=== PATIENT | male | born 1930 | race Caucasian/White ===

== ENCOUNTER 2016-10-26 19:17 | Emergency (ER) | payer OTHER ==
[~2016-10-26] VITALS: Ht 170.2 cm; Wt 70.0 kg
[2016-10-26 19:26] VITALS: Ht 170.2 cm; Wt 70.0 kg
--- NOTE | 2016-10-26 19:45 | ERA ---
ER Documentation Chief Complaint Date/Time DATE: 10/26/16 TIME: 19:39 Chief Complaint slip and fall 6 hrs ago, left hip pain, shortened, rotated. no LOC HPI 86-year-old male with a remote history of pancreatic cancer presents the ED by rescue ambulance for evaluation of left hip pain after a fall. Patient states that he he fell on a slippery floor and subsequently could not get up. He was down approximately 5-6 hours before his caregiver found him. Paramedics were called and administered morphine 8 mg IV. He is complaining of moderate, sharp , nonradiating left hip/groin pain exacerbated by any movement. Denies headache , visual changes, focal weakness or numbness. No chest pain or palpitations. No shortness of breath or cough. Denies abdominal pain, nausea, vomiting, diarrhea or constipation. No hematemesis, hematochezia or melanotic stools. No URI symptoms, fevers or chills. ROS All systems reviewed and are negative except as per history of present illness. Medications Home Meds No Active Prescriptions or Reported Meds Allergies Allergies: Coded Allergies: No Known Drug Allergies (Verified Allergy, Unknown, 10/26/16) PMhx/Soc Reviewed in chart. As per HPI. Lives independently with assistance from friends/caregiver. History of Surgery: Yes (Abdominal surgery for pancreatic cancer) Anesthesia Reaction: No Hx Neurological Disorder: No Hx Respiratory Disorders: No Hx Cardiac Disorders: No Hx Psychiatric Problems: No Hx Miscellaneous Medical Probl: Yes (Pancreatic cancer, nephrolithiasis, osteoporosis, bronchiectasis anemia, pneumonia) Hx Alcohol Use: No Hx Substance Use: No Hx Tobacco Use: No FmHx Not relevant to presenting complaint Physical Exam Vitals Vital Signs Date Time Temp Pulse Resp B/P Pulse Ox O2 Delivery O2 Flow Rate FiO2 10/26/16 21:11 97.1 56 20 138/66 98 Room Air 10/26/16 19:26 99.1 57 17 131/72 97 Physical Exam Const: Alert, moderate distress. Head: Atraumatic Eyes: Normal Conjunctiva. Right ptosis. ENT: Normal External Ears, Nose and Mouth. Neck: Full range of motion. Supple. Nontender. Full range of motion. Resp: Breath sounds are equal and clear to auscultation bilaterally Cardio: Regular rate and rhythm, no murmurs Abd: Soft, non tender, no masses or abnormal pulsations. No rebound or guarding. Normal bowel sounds Skin: No petechiae or rashes Back: No midline or flank tenderness Ext: Left lower extremity is shortened and externally rotated. Left hip/ groin tenderness. Distal neurovascular intact. Neur: Awake and alert. No focal deficit observed. Psych: Normal Mood and Affect Result Diagram: 10/26/16200410/26/162004 Results 24 hrs Laboratory Tests Test 10/26/16 20:05 White Blood Count 11.110^3/ul Red Blood Count 3.3410^6/ul Hemoglobin 11.5g/dl Hematocrit 33.5% Mean Corpuscular Volume 100.3fl Mean Corpuscular Hemoglobin 34.4pg Mean Corpuscular Hemoglobin Concent 34.3g/dl Red Cell Distribution Width 14.7% Platelet Count 43133^3/UL Mean Platelet Volume 10.2fl Neutrophils % 88.0% Band Neutrophils % 3.0% Lymphocytes % 4.0% Monocytes % 5.0% Neutrophils # 9.810^3/ul Lymphocytes # 0.410^3/ul Monocytes # 0.610^3/ul Platelet Estimate PLT APPEAR ADEQUATE Prothrombin Time 14.7Sec Prothrombin Time Ratio 1.1 INR International Normalized Ratio 1.15 Activated Partial Thromboplast Time 30.9Sec Sodium Level 138mmol/L Potassium Level 4.1mmol/L Chloride Level 110mmol/L Carbon Dioxide Level 17mmol/L Anion Gap 15 Blood Urea Nitrogen 20mg/dl Creatinine 0.91mg/dl Glucose Level 132mg/dl Calcium Level 8.7mg/dl Total Bilirubin 0.5mg/dl Direct Bilirubin 0.00mg/dl Indirect Bilirubin 0.5mg/dl Aspartate Amino Transf (AST/SGOT) 42IU/L Alanine Aminotransferase (ALT/SGPT) 39IU/L Alkaline Phosphatase 82IU/L Total Protein 7.4g/dl Albumin 3.5g/dl Globulin 3.90g/dl Albumin/Globulin Ratio 0.89 EKG: TIME: 20: 42. Sinus bradycardia. Ventricular rate 51. Normal WA and QRS. No acute ST segment elevation or depression. No ectopy. EP Interpretation: Sinus bradycardia otherwise normal ECG. IMAGING: PROCEDURE: CT Brain without contrast. CLINICAL INDICATION: Headaches. Head injury. Trauma. TECHNIQUE: A CT of the brain was performed on a multidetector CT scanner utilizing axial sections from the skull base through the vertex without contrast. Images were reviewed on a high-resolution PACS workstation. Exam CTDI = 45.01 mGy and the DLP = 810.25 mGy-cm. COMPARISON: None available FINDINGS: Moderate diffuse cerebral and cerebellar atrophy is present. There is proportionate dilatation of the ventricular system and sulci in a symmetric fashion. There is prominence of the extraaxial spaces secondary to atrophy. There is no evidence of intracranial hemorrhage, mass effect or midline shift. No abnormal intra-axial or extra-axial fluid collections are seen. The density of the brain is normal and the ascencio/white matter differentiation is well preserved. Mild patchy diffuse deep white matter microangiopathic ischemic change is seen. 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 There is a scleral band around the right optic globe. The osseous structures and visualized paranasal sinuses are remarkable for mucoperiosteal thickening within the left maxillary sinus. Vascular calcifications are identified. IMPRESSION: 1. Moderate diffuse atrophy. 2. Mild microangiopathic ischemic change. 3. Vascular calcifications. 4. No acute intracranial process RPTAT: HMJB .Chris Reynolds MD, Date Time Electronically viewed and signed by .Chris Reynolds MD, MD on 10/26/2016 20:27 .B/ PROCEDURE: XR Chest. CLINICAL INDICATION: Trauma. Pain.. TECHNIQUE: Single frontal chest x-ray. COMPARISON: None. FINDINGS: The cardiomediastinal silhouette is unremarkable. There is hypoventilation with minimal bibasilar vascular crowding.. No focal infiltrate is seen. There is no pleural effusion. There is no pneumothorax. There are degenerative changes of the shoulders, right greater than left. No fractures identified.. IMPRESSION: Mild hypoventilation. Otherwise no acute abnormality. RPTAT: HMVK .Elvis Syed MD, Date Time Electronically viewed and signed by .Elvis Syed MD, MD on 10/26/2016 20:02 .K/ PROCEDURE: Left hip series CLINICAL INDICATION: Pain status post trauma TECHNIQUE: AP and frog-leg lateral left hip COMPARISON: AP pelvis x-ray 10/26/2016 FINDINGS: An acute left femoral neck fracture is present. No dislocation is noted. Consider CT to further evaluate. An abundance of stool is noted in the rectosigmoid. Mild degenerative changes are present of the left femoral acetabular joint. IMPRESSION: 1. Acute , closed, mildly displaced left femoral neck fracture with mild displacement of fracture fragments. Recommend CT to further evaluate. 2. No evidence for dislocation 3. Mild left femoral acetabular joint space narrowing. RPTAT: HDC .Brianna Cortez MD, MD Date Time Electronically viewed and signed by .Brianna Cortez MD, MD on 10/26/2016 20: 04 .C/ PROCEDURE: AP pelvis CLINICAL INDICATION: Pain following trauma TECHNIQUE: AP pelvis COMPARISON: None available FINDINGS: The appearance of a left femoral neck fracture is suggested with foreshortening noted. Recommend left hip series and CT to further evaluate. Abundance of stool is noted in the rectosigmoid. Mild generalized osteopenia is present. Mild degenerative changes of the lumbar spine and the bilateral hips are present. IMPRESSION: 1. Left femoral neck fracture incompletely evaluated. Recommend CT to further evaluate. 2. Mild bilateral femoral acetabular joint disease and mild lumbar spondylosis. RPTAT: HDC .Brianna Cortez MD, MD Date Time Electronically viewed and signed by .Brianna Cortez MD, MD on 10/26/2016 20: 00 .C/ Procedures/MDM DOCUMENTS REVIEWED: ED nurse, no prior records. Additional history of obtained from [facility] via a faxed, medical information snapshot and discussion with the EPR[facility]. MEDICAL DECISION MAKIN-year-old male with a remote history of pancreatic cancer presents the ED by rescue ambulance for evaluation of left hip pain after a fall. Patient states that he he fell on a slippery floor and subsequently could not get up. Patient sustained a closed, displaced, left femoral neck fracture. Patient denied syncope or loss of consciousness. He has no focal deficits or signs of CVA or TIA. Possible closed head injury and a CT of the brain without contrast is negative for bleed, infarct or mass. No acute electrolyte abnormalities. Abdominal exam is benign without rebound, guarding or other signs of peritonitis, obstruction or abdominal aortic aneurysm. Incidentally noted is a large amount of stool in the rectum consistent with constipation. Patient is stable for transfer to [facility] [place] for urgent orthopedic surgery consultation, further evaluation and management. Counseled patient and family regarding diagnosis, diagnostic results and plan for transfer to which they agree. CALLS/CONSULTS: Time 21:15, [facility] Dr. Sweeney, will arrange for transfer. Case #[id number] DISPOSITION: [facility], Dr Trevor northing. Departure Diagnosis: Primary Impression: Closed displaced fracture of left femoral neck Qualified Code: S72.002A - Closed displaced fracture of left femoral neck, initial encounter Additional Impressions: Fall as cause of accidental injury at home as place of occurrence History of pancreatic cancer Condition: Serious MARK BELTRAN MD October 26, 2016 19:45
--- NOTE | 2016-10-26 20:00 | RADRPT ---
PROCEDURE: AP pelvis CLINICAL INDICATION: Pain following trauma TECHNIQUE: AP pelvis COMPARISON: None available FINDINGS: The appearance of a left femoral neck fracture is suggested with foreshortening noted. Recommend le ft hip series and CT to further evaluate. Abundance of stool is noted in the rectosigmoid. Mild ge neralized osteopenia is present. Mild degenerative changes of the lumbar spine and the bilateral hi ps are present. IMPRESSION: 1. Left femoral neck fracture incompletely evaluated. Recommend CT to further evaluate. 2. Mild bilateral femoral acetabular joint disease and mild lumbar spondylosis. RPTAT: HDC .Brianna Cortez MD, MD Date Time Electronically viewed and signed by .Brianna Cortez MD, on 10/26/2016 20:00 .C/
--- NOTE | 2016-10-26 20:03 | RADRPT ---
PROCEDURE: XR Chest. CLINICAL INDICATION: Trauma. Pain.. TECHNIQUE: Single frontal chest x-ray. COMPARISON: None. FINDINGS: The cardiomediastinal silhouette is unremarkable. There is hypoventilation with minimal bibasilar v ascular crowding.. No focal infiltrate is seen. There is no pleural effusion. There is no pneumoth orax. There are degenerative changes of the shoulders, right greater than left. No fractures ident ified.. IMPRESSION: Mild hypoventilation. Otherwise no acute abnormality. RPTAT: HMVK .Elvis Syed MD, Date Time Electronically viewed and signed by .Elvis Syed MD, on 10/26/2016 20:02 .K/
--- NOTE | 2016-10-26 20:04 | RADRPT ---
PROCEDURE: Left hip series CLINICAL INDICATION: Pain status post trauma TECHNIQUE: AP and frog-leg lateral left hip COMPARISON: AP pelvis x-ray 10/26/2016 FINDINGS: An acute left femoral neck fracture is present. No dislocation is noted. Consider CT to further ev aluate. An abundance of stool is noted in the rectosigmoid. Mild degenerative changes are present of the left femoral acetabular joint. IMPRESSION: 1. Acute , closed, mildly displaced left femoral neck fracture with mild displacement of fracture f ragments. Recommend CT to further evaluate. 2. No evidence for dislocation 3. Mild left femoral acetabular joint space narrowing. RPTAT: HDC .Brianna Cortez MD, MD Date Time Electronically viewed and signed by .Brianna Cortez MD, on 10/26/2016 20:04 .C/
[2016-10-26 20:09] LABS: ADD SCAN DIFF NO
[2016-10-26 20:11] LABS: ABNORMAL IP MESSAGE 1; HEMATOCRIT 33.5 % (42.0-52.0); HEMOGLOBIN 11.5 g/dl (14.0-18.0); MEAN CORPUSCULAR HEMOGLOBIN 34.4 pg (29.0-33.0); MEAN CORPUSCULAR HGB CONC 34.3 g/dl (32.0-37.0); MEAN CORPUSCULAR VOLUME 100.3 fl (82.0-101.0); MEAN PLATELET VOLUME 10.2 fl (7.4-10.4); PLATELET COUNT 197 10^3/UL (140-415); RED BLOOD COUNT 3.34 10^6/ul (4.70-6.10); RED CELL DISTRIBUTION WIDTH 14.7 % (11.5-14.5); WHITE BLOOD COUNT 11.1 10^3/ul (4.8-10.8)
--- NOTE | 2016-10-26 20:27 | RADRPT ---
PROCEDURE: CT Brain without contrast. CLINICAL INDICATION: Headaches. Head injury. Trauma. TECHNIQUE: A CT of the brain was performed on a multidetector CT scanner utilizing axial sections from the skull base through the vertex without contrast. Images were reviewed on a high-resolution [employer] workstation. Exam CTDI = 45.01 mGy and the DLP = 810.25 mGy-cm. COMPARISON: None available FINDINGS: Moderate diffuse cerebral and cerebellar atrophy is present. There is proportionate dilatation of t he ventricular system and sulci in a symmetric fashion. There is prominence of the extraaxial spaces secondary to atrophy. There is no evidence of intracranial hemorrhage, mass effect or midline shift . No abnormal intra-axial or extra-axial fluid collections are seen. The density of the brain is n ormal and the ascencio/white matter differentiation is well preserved. Mild patchy diffuse deep white m atter microangiopathic ischemic change is seen. There are old lacunar infarcts in the basal ganglia . There is a scleral band around the right optic globe. The osseous structures and visualized paran maye sinuses are remarkable for mucoperiosteal thickening within the left maxillary sinus. Vascular calcifications are identified. IMPRESSION: 1. Moderate diffuse atrophy. 2. Mild microangiopathic ischemic change. 3. Vascular calcifications. 4. No acute intracranial process RPTAT: HMJB .Chris Reynolds MD, Date Time Electronically viewed and signed by .Chris Reynolds MD, on 10/26/2016 20:27 .B/
[2016-10-26 20:28] LABS: INR 1.15; PARTIAL THROMBOPLASTIN TIME 30.9 Sec (25.0-35.0); PROTIME 14.7 Sec (12.2-14.2); PT RATIO 1.1
[2016-10-26 20:29] LABS: ALBUMIN 3.5 g/dl (3.3-4.9)
[2016-10-26 20:30] LABS: POTASSIUM 4.1 mmol/L (3.5-5.1)
[2016-10-26 20:32] LABS: ALBUMIN/GLOBULIN RATIO 0.89; BILIRUBIN,INDIRECT 0.5 mg/dl (0-1.1); BILIRUBIN,TOTAL 0.5 mg/dl (0.2-1.3); CREATININE 0.91 mg/dl (0.61-1.24); TOTAL PROTEIN 7.4 g/dl (6.1-8.1)
[2016-10-26 20:33] LABS: CALCIUM 8.7 mg/dl (8.4-10.2)
[2016-10-26 21:26] LABS: LYMPHOCYTES # 0.4 10^3/ul (0.8-2.9); MONOCYTE # 0.6 10^3/ul (0.3-0.9); NEUTROPHIL # 9.8 10^3/ul (1.6-7.5); PLATELET ESTIMATE PLT APPEAR ADEQUATE
[2016-10-26 22:02] LABS: ADD UMIC YES; URINE BILIRUBIN (Dip) NEGATIVE (NEGATIVE); URINE BLOOD (Dip) NEGATIVE (NEGATIVE); URINE COLOR LT. YELLOW (YELLOW); URINE GLUCOSE (Dip) NEGATIVE (NEGATIVE); URINE KETONES (Dip) NEGATIVE (NEGATIVE); URINE LEUKOCYTE ESTERASE (Dip) NEGATIVE (NEGATIVE); URINE NITRITE (Dip) NEGATIVE (NEGATIVE); URINE TOTAL PROTEIN (Dip) TRACE (NEGATIVE); URINE UROBILINOGEN (Dip) 0.2 E.U./dL (0.1-1.0)
[2016-10-26 22:12] LABS: SQUAMOUS EPITHELIAL CELL,UR RARE; URINE RBCS 0-2 /HPF (0)
[2016-10-26 22:25] VITALS: BP 135/64; PULSE 56; RESP 16; TEMP 98
== END 2016-10-26 22:23 | disposition short-term general hospital (02) ==
LOC: E/R 19:17
DX: S72.002A Fracture of unspecified part of neck of left femur, initial encounter for closed fracture (principal); R00.1 Bradycardia, unspecified; W01.0XXA Fall on same level from slipping, tripping and stumbling without subsequent striking against object, initial encounter; Y92.9 Unspecified place or not applicable; Z85.07 Personal history of malignant neoplasm of pancreas
CPT/HCPCS: 70450; 71010; 72170; 73510; 80053; 81001; 81003; 85025; 85610; 85730; 86850; 86900; 86901; 93005

== ENCOUNTER 2018-07-20 13:37 | Emergency (ER) | payer OTHER ==
[~2018-07-20] VITALS: Ht 182.9 cm; Wt 72.7 kg
[2018-07-20 13:41] VITALS: Ht 182.9 cm; Wt 72.7 kg
[2018-07-20] MEDS ORDERED: ALEN70TA5 PO (15:25)
[2018-07-20] MEDS ORDERED: CEFTRIAXONE 1 GM/50 ML (PMX) 50 ML IVPB ONE (17:00)
[2018-07-20] MEDS ORDERED: IODIXANOL LOCM 100 ML BTL ONE (17:29)
[2018-07-20] MEDS ORDERED: SOD CHLORIDE 0.9% 100 ML ONE ×2 (17:29→17:37)
[2018-07-20] MEDS ORDERED: IOHEXOL 300MG/ML 150 ML BTL ONE (17:37)
[2018-07-20] MEDS ORDERED: CEPH-443 PO (19:25)
--- NOTE | 2018-07-20 19:41 | ERD ---
ER Documentation Chief Complaint Chief Complaint bloody, foul smell urine x 1 day HPI This is an 87-year-old male presents for evaluation of hematuria and foul- smelling urine times 1 day. Patient denies fever, he has not had any abdominal pain, he has a history of pancreatic cancer, he does not use a [place] catheter. He is normally bedbound, denies chest pain or shortness of breath. No nausea vomiting. ROS All systems reviewed and are negative except as per history of present illness. Medications Home Meds Active Scripts Cephalexin* (Keflex*) 500 Mg Capsule, 500 MG PO QID for 7 Days, CAP Prov:LUCIA MATSON MD 07/20/18 Reported Medications Alendronate Sodium* (Fosamax*) 70 Mg Tablet, 70 MG PO QSUN, #4 TAB 07/20/18 Allergies Allergies: Coded Allergies: No Known Drug Allergies (Verified Allergy, Unknown, 07/20/18) PMhx/Soc History of Surgery: Yes (Abdominal surgery for pancreatic cancer) Anesthesia Reaction: No Hx Neurological Disorder: No Hx Respiratory Disorders: No Hx Cardiac Disorders: No Hx Psychiatric Problems: No Hx Miscellaneous Medical Probl: Yes (bed bound) Hx Alcohol Use: No Hx Substance Use: No Hx Tobacco Use: No Smoking Status: Never smoker Physical Exam Vitals Vital Signs Date Temp Pulse Resp B/P (MAP) Pulse Ox O2 O2 Flow FiO2 Time Delivery Rate 07/20/18 57 20 112/61 100 Room Air 17:12 (78) 07/20/18 56 16 112/64 99 Room Air 15:14 (80) 07/20/18 99.4 68 18 136/81 97 13:41 (99) Physical Exam Const: Pleasant, elderly appearing male. Head: Atraumatic Eyes: Normal Conjunctiva ENT: Normal External Ears, Nose and Mouth. Neck: Full range of motion. No meningismus. Resp: Clear to auscultation bilaterally Cardio: Regular rate and rhythm, no murmurs Abd: Soft, non tender, non distended. Normal bowel sounds Skin: No petechiae or rashes Back: No midline or flank tenderness Ext: No cyanosis, or edema Neur: Awake and alert Psych: Normal Mood and Affect Result Diagram: 07/20/18 1422 07/20/18 1422 Results 24 hrs Laboratory Tests Test 07/20/18 14:22 07/20/18 15:10 07/20/18 16:10 White Blood Count 12.4 10^3/ul Red Blood Count 3.35 10^6/ul Hemoglobin 10.9 g/dl Hematocrit 32.6 % Mean Corpuscular Volume 97.3 fl Mean Corpuscular Hemoglobin 32.5 pg Mean Corpuscular 33.4 g/dl Hemoglobin Concent Red Cell Distribution Width 14.6 % Platelet Count 270 10^3/UL Mean Platelet Volume 9.8 fl Immature Granulocytes % 1.300 % Neutrophils % 84.2 % Lymphocytes % 7.1 % Monocytes % 6.0 % Eosinophils % 1.0 % Basophils % 0.4 % Nucleated Red Blood Cells % 0.0 /100WBC Immature Granulocytes # 0.160 10^3/ul Neutrophils # 10.5 10^3/ul Lymphocytes # 0.9 10^3/ul Monocytes # 0.7 10^3/ul Eosinophils # 0.1 10^3/ul Basophils # 0.1 10^3/ul Nucleated Red Blood Cells # 0.0 10^3/ul Prothrombin Time 14.3 Sec Prothrombin Time Ratio 1.1 INR International 1.10 Normalized Ratio Activated Partial Thromboplast 34.7 Sec Time Sodium Level 137 mmol/L Potassium Level 3.4 mmol/L Chloride Level 107 mmol/L Carbon Dioxide Level 21 mmol/L Anion Gap 9 Blood Urea Nitrogen 10 mg/dl Creatinine 0.75 mg/dl Est Glomerular Filtrat mL/min Rate mL/min Glucose Level 145 mg/dl Lactic Acid Level 1.8 mmol/L POC Venous Lactate 1.6 mmol/L 0.9 mmol/L Calcium Level 8.3 mg/dl Total Bilirubin 0.2 mg/dl Direct Bilirubin 0.00 mg/dl Indirect Bilirubin 0.2 mg/dl Aspartate Amino 24 IU/L Transf (AST/SGOT) Alanine 10 IU/L Aminotransferase (ALT/SGPT) Alkaline Phosphatase 65 IU/L Troponin I < 0.012 ng/ml Total Protein 6.4 g/dl Albumin 2.9 g/dl Globulin 3.50 g/dl Albumin/Globulin Ratio 0.82 Lipase < 10 U/L Urine Color RED Urine Clarity CLOUDY Urine pH 5.0 Urine Specific [place] 1.014 Urine Ketones NEGATIVE mg/dL Urine Nitrite NEGATIVE mg/dL Urine Bilirubin NEGATIVE mg/dL Urine Urobilinogen NEGATIVE mg/dL Urine Leukocyte Esterase 2+ Regine/ul Urine Microscopic RBC > 182 /HPF Urine Microscopic WBC > 182 /HPF Urine Bacteria MANY /HPF Urine Mucus MODERATE /HPF Urine Hemoglobin 3+ mg/dL Urine Glucose NEGATIVE mg/dL Urine Total Protein 2+ mg/dl Current Medications Medications Dose Sig/Shayla Start Time Status Last (Trade) Ordered Route PRN Stop Time Admin Dose Reason Admin Ceftriaxone 50 ml @ ONCE ONCE 07/20/18 DC 07/20/18 Sodium 100 mls/hr IVPB 17:00 17:11 07/20/18 17:29 IV Flush 10 ml STK-MED 07/20/18 DC (NS 10 ml) ONCE .ROUTE 17:29 07/20/18 17:30 Sodium 100 ml @ ud STK-MED 07/20/18 DC Chloride ONCE .ROUTE 17:29 07/20/18 17:30 Iodixanol 100 ml STK-MED 07/20/18 DC (Visipaque ONCE .ROUTE 17:29 Locm) 07/20/18 17:30 IV Flush 10 ml STK-MED 07/20/18 DC (NS 10 ml) ONCE .ROUTE 17:37 07/20/18 17:38 Sodium 100 ml @ ud STK-MED 07/20/18 DC Chloride ONCE .ROUTE 17:37 07/20/18 17:38 Iohexol 150 ml STK-MED 07/20/18 DC (Omnipaque ONCE .ROUTE 17:37 300mg/ ml) 07/20/18 17:38 Procedures/MDM This is an 87-year-old male who presents for evaluation of hematuria and foul- smelling urine. His urinalysis showed pyuria as well as hematuria, he has a [facility] history of kidney stones, his CT scan showed signs of metastasis, I informed the patient and his family about this. They were aware of history of pancreatic cancer, did not know about peritoneal masses. Patient still feels well, has no fever, no abdominal pain. I offered admission for treatment of possible comp located UTI, as well as further workup for malignancy. Family stated that they would prefer to follow-up malignancy workup at [place], he was given a dose of ceftriaxone here in the ED, the patient and family wished to be discharged home, and be treated for infection as an outpatient, he will be discharged on Keflex. Strict return precautions were given for fever, vomiting, abdominal pain, or any worsening symptoms. At discharge patient was in no acute distress per Departure Diagnosis: Primary Impression: Pyelonephritis Condition: Stable Patient Instructions: Pyelonephritis, Male (Adult) Additional Instructions: Call your primary care doctor TOMORROW for an appointment during the next 2-3 days.See the doctor sooner or return here if your condition worsens before your appointment time. LUCIA MATSON MD Jul 20, 2018 19:41
[2018-07-20] MEDS ORDERED: SULF1TAB31 PO (20:33)
[2018-07-20 22:01] VITALS: BP 112/61; PULSE 58; RESP 20
== END 2018-07-20 22:01 | disposition home or self-care (01) ==
LOC: E/R 13:37
DX: N12 Tubulo-interstitial nephritis, not specified as acute or chronic (principal); R10.9 Unspecified abdominal pain
CPT/HCPCS: 74176; 74177; 80053; 81001; 83605; 83690; 84484; 85025; 85610; 85730; 86850; 86900; 86901; 87040; 87086; 93005; 96374; 99285; J0696; Q9967; 74178